=== PATIENT | female | born 2000 | race African-American/Black ===

== ENCOUNTER 2021-03-20 18:07 | Emergency (ER) | payer MEDICAID, OTHER ==
[~2021-03-20] VITALS: Ht 165.1 cm; Wt 55.8 kg
[2021-03-20] MEDS ORDERED: ACETAMINOPHEN 325 MG TAB PO ONE (18:30)
[2021-03-20] MEDS ORDERED: IBUPROFEN 600 MG TAB PO ONE (18:30)
[2021-03-20 19:06] LABS: Urine Bacteria NONE SEEN /hpf (None Seen); Urine Blood Negative /uL (Negative); Urine WBC 9 /hpf (0 - 5)
[2021-03-20 23:01] VITALS: BP 102/55
== END 2021-03-20 23:07 | disposition home or self-care (01) ==
LOC: ER 18:09
DX: N39.0 Urinary tract infection, site not specified (principal); M54.50 Low back pain, unspecified; R51.9 Headache, unspecified; R53.83 Other fatigue; R50.9 Fever, unspecified; Z20.822 Contact with and (suspected) exposure to COVID-19
CPT/HCPCS: 36415; 71045; 81001; 81025; 87426